=== PATIENT | male | born 1950 | race Caucasian/White ===

== ENCOUNTER → 2021-10-07 14:38 | Outpatient (BNVA) | payer MEDICARE, SELFPAY | PROVIDERS: PCP Family Medicine Adult Medicine; Referring Provider Family Medicine Adult Medicine; Visit Provider Surgery | DX: K40.20 Bilateral inguinal hernia, without obstruction or gangrene, not specified as recurrent (principal) | CPT/HCPCS: 99204 ==

== ENCOUNTER 2021-10-09 06:44 | Day surgery (SDC) | payer MEDICARE, SELFPAY ==
[2021-10-08 10:43] VITALS: BMI 22.1
--- NOTE | 2021-10-09 07:02 | P.HP_ITS ---
Same Day Surgery H&P Indication for Procedure/HPI DATE OF PROCEDURE: October 09, 2021 CHIEF COMPLAINT/INDICATIONFOR SURGICAL PROCEDURE: b/l inguinal hernia PREOP DIAGNOSIS: inguinal hernia PLANNED PROCEDURE: Operation Date: 10/09/21 08:15 Proposed Procedures p Lap poss open bilateral ingunial hernia repair 70966/K40.20(Bilateral) - Sanjay White MD Medications/Allergies* Home Medications Medication Instructions Recorded Confirmed Type amlodipine 5 mg tablet 5 mg PO DAILY 09/25/21 10/08/21 History candesartan 16 mg tablet 16 mg PO DAILY 09/25/21 10/08/21 History coenzyme Q35-[id number] E 100 mg-100 1 cap PO DAILY 09/25/21 10/08/21 History unit capsule magnesium oxide 400 mg (241.3 mg 400 mg PO DAILY 09/25/21 10/08/21 History magnesium) tablet simvastatin 20 mg tablet (Zocor) 20 mg PO BEDTIME tab 09/25/21 10/08/21 History vit C 250 mg-vit E 90 mg-zinc 40 1 tab PO DAILY cap 09/25/21 10/08/21 History mg-copper 1 [id number] capsule (PreserVision AREDS-2) Allergies/Adverse Reactions Allergy/AdvReac Type Severity Reaction Status Date / Time No Known Allergies Allergy Verified 10/08/21 10:39 Pertinent History/Comorbid Conditions* Medical History (Updated 10/07/21 @ 14:58 by Sanjay White MD) Hyperlipidemia Hypertension Surgical History (Updated 10/07/21 @ 14:58 by Sanjay White MD) History of cholecystectomy History of colonoscopy 25 years Family History (Updated 10/07/21 @ 14:48 by Jennifer Parmar MA) CAD (coronary artery disease) Cancer Social History Smoking and tobacco status: never smoked Alcohol intake: current Alcohol intake frequency: holidays/special occasions only Household members: spouse Marital status: Current occupational status: retired Pertinent Exam Findings alert, oriented x 3 and regular rate & rhythm Recommendations Surgery/Procedure today Coding Level of Care Code Acute Research Study Assistant for Niralig Arely
[2021-10-09 07:21] VITALS: BP 146/80; PULSE 69; RESP 18; TEMP 36.4; O2SAT 100
[2021-10-09] MEDS: sodium chloride 0.9% 1,000 ML 30 ML IV (07:32)
--- NOTE | 2021-10-09 08:10 | ANES.PREANE2 ---
Pre-Anesthetic Assessment Height/Weight: Height 1.7 m Weight 63.957 kg Temp Pulse Resp BP Pulse Ox 97.6 F 69 18 146/80 100 10/09/21 07:21 10/09/21 07:21 10/09/21 07:21 10/09/21 07:21 10/09/21 07:21 Preop Diagnosis: inguinal hernia Operation Date: 10/09/21 08:15 Proposed Procedures p Lap poss open bilateral ingunial hernia repair 96695/K40.20(Bilateral) - Sanjay White MD Familial anesthetic complications: PONV Was Beta Hailey taken within 24 hours: N/A Was Clonidine taken within 24 hours: N/A Last intake: Intake Last Liquid Date 10/08/21 Last Liquid Time 19:30 Last Solid Date 10/09/21 Last Solid Time 19:30 Social No alcohol and No tobacco Exam alert, oriented x 3, clear to auscultation bilaterally and regular rate & rhythm Airway Submandibular: within normal limits Cervical ROM: within normal limits Mallampati: Class II Dentition: full CV/HEM Hypertension Metabolic Hyperlipidemia Anesthetic Plan ASA status: 2 Anesthesia: General Medications/Allergies Home Medications Medication Instructions Recorded Confirmed Last Taken Type amlodipine 5 mg tablet 5 mg PO DAILY 09/25/21 10/09/21 10/09/21 History candesartan 16 mg tablet 16 mg PO DAILY 09/25/21 10/09/21 10/08/21 History coenzyme [id number] E 100 mg-100 1 cap PO DAILY 09/25/21 10/09/21 10/08/21 History unit capsule magnesium oxide 400 mg (241.3 mg 400 mg PO DAILY 09/25/21 10/09/21 10/08/21 History magnesium) tablet simvastatin 20 mg tablet (Zocor) 20 mg PO BEDTIME tab 09/25/21 10/09/21 10/08/21 History vit C 250 mg-vit E 90 mg-zinc 40 1 tab PO DAILY cap 09/25/21 10/08/21 Unknown History mg-copper 1 nu-yfkxzm-uplyuv capsule (PreserVision AREDS-2) hydrocodone 5 mg-acetaminophen 325 1 tab PO Q6H PRN #20 tab 10/09/21 Unknown Rx mg tablet Allergies Allergy/AdvReac Type Severity Reaction Status Date / Time No Known Allergies Allergy Verified 10/08/21 10:39 Current Medications Generic Name Dose Route Start Last Admin Trade Name Freq PRN Reason Stop Dose Admin Sodium Chloride 1,000 mls @ 30 mls/hr 10/09/21 07:15 10/09/21 07:32 Sodium Chloride 0.9% IV 10/10/21 07:14 30 mls/hr .Q24H STEVE Administration PFSH Anesthesia Medical History (Updated 10/08/21 @ 10:39 by Vonnie Sanchez) Hyperlipidemia Hypertension Surgical History (Updated 10/09/21 @ 08:03 by Sanjay White MD) History of cholecystectomy History of colonoscopy 25 years S/P bilateral inguinal hernia repair (10/09/21) Family History Other CAD (coronary artery disease) Cancer Social History Smoking and tobacco status: never smoked Alcohol intake: current Alcohol intake frequency: holidays/special occasions only Household members: spouse Marital status: Current occupational status: retired Data Anesthesia Cardiac Studies: No Data to Display
[2021-10-09] MEDS: diphenhydrAMINE 50 mg/mL SDV 1mL 12.5 MG IVP (08:12)
--- NOTE | 2021-10-09 09:22 | PM.OP ---
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 Laparoscopic total extraperitoneal repair of bilateral indirect inguinal hernia with Surgimax 3D mesh 15 x 10cm 2. Excision of lipoma of the right spermatic cord Pathology: none sent Surgeon: Sanjay White Anesthesia: General Condition: stable Disposition: PACU Procedure: The patient was taken to the operating room and intubated under general anesthesia. After IV antibiotic was administered, the abdomen was prepped and draped in a sterile manner. Using a 15 blade, a 1.0 cm transverse incision was made infraumbilically on the right side. Subcutaneous tissue was divided using electrocautery and the anterior rectus sheath divided using an 11 blade. The rectus muscle was retracted laterally and the extraperitoneal space identified. The retrorectus preperitoneal space was opened using a balloon dissector and 11 mm port was placed and 13 mm of pneumoperitoneum was created. A 10 mm 30? scope was introduced and 5 mm ports were placed in the midline, one 2-fingerbreadths above the pubic symphysis and the other midway between these two ports under direct visualization. The dissection was then carried laterally on the right where the iliopubic tract was identified. There was no femoral, obturator or direct hernia noted. The inferior epigastric artery was identified and dissection was carried posterior to it and laterally, the space was opened up to the level of the umbilicus superior to the anterior superior iliac spine. I then proceeded to dissect out the spermatic cord and the indirect hernial sac was reduced. There was a lipoma of the spermatic cord which was excised. The dissection was then carried laterally on the left where the iliopubic tract was identified. There was no femoral, obturator or direct hernia noted. The inferior epigastric artery was identified and dissection was carried posterior to it and laterally, the space was opened up to the level of the umbilicus superior to the anterior superior iliac spine. I then proceeded to dissect out the spermatic cord and the indirect hernial sac was reduced. 15 x 10cm Ultrapro mesh was rolled and introduced through the 10 mm port and then rolled laterally on the left side and apposed well against the abdominal wall to cover the myopectineal orifice completely and secured with Securestraps. 15 x 10cm Ultrapro mesh was rolled and introduced through the 10 mm port and then rolled laterally on the right side and apposed well against the abdominal wall to cover the myopectineal orifice completely and secured with Securestraps. 10 Cc of 0.5% Marcaine was infiltrated into the preperitoneal space. The extraperitoneal space was desufflated under direct visualization to ensure no slippage of hernial sac under the mesh. All ports were removed, the anterior rectus fascia at the infraumbilical port closed using figure of eight 0 Vicryl sutures, subcutaneous tissue approximated using 3-0 Vicryl sutures and skin at all three port sites were closed using running subcuticular 4-0 Monocryl sutures and Dermabond. 10 mL of 0.5% Marcaine was infiltrated at the port sites. The patient was stable throughout the procedure, extubated and transferred to recovery room.
[2021-10-09 09:30] VITALS: BP 127/75; PULSE 62; RESP 18; TEMP 36.1; O2SAT 99
[2021-10-09 09:35] VITALS: BP 114/70; PULSE 53; RESP 18; O2SAT 94
--- NOTE | 2021-10-09 09:38 | ANE.PACU2 ---
Inpatient post-anesthesia follow up: Airway intact: Yes Vital signs: Temperature 97.6 F Pulse Rate 69 Respiratory Rate 18 Blood Pressure 146/80 Pulse Oximetry 100 Oxygen Delivery Me thod Room Air Oxygen Flow Rate Fraction of Inspir ed Oxygen Hydration adequate: Yes Nausea and vomiting: No Pain level: 2 Mental status: Baseline
[2021-10-09 09:40] VITALS: BP 113/69; PULSE 54; O2SAT 95
[2021-10-09 10:09] VITALS: BP 107/57; PULSE 50; RESP 18; O2SAT 96
[2021-10-09 11:07] VITALS: BP 114/69; PULSE 73; RESP 18; O2SAT 97
[2021-10-09] MEDS: HYDROcodone-acetaminophen 5-325 mg Tablet 1 TAB PO (11:26)
== END 2021-10-09 11:50 | disposition home or self-care (01) ==
PROVIDERS: PCP Family Medicine Adult Medicine; Visit Provider Surgery
PROC: (CPT 49650; principal; 2021-10-09 08:10)
DX: K40.20 Bilateral inguinal hernia, without obstruction or gangrene, not specified as recurrent (principal); D17.6 Benign lipomatous neoplasm of spermatic cord; I10 Essential (primary) hypertension; E78.5 Hyperlipidemia, unspecified
CPT/HCPCS: 49650; C1781; J0690; J1100; J1170; J1200; J2370; J2405; J2704; J2710; J3010; J3490; J7030

== ENCOUNTER → 2021-10-21 10:36 | Outpatient (BNVA) | payer MEDICARE, SELFPAY | PROVIDERS: PCP Family Medicine Adult Medicine; Visit Provider Surgery | DX: Z98.890 Other specified postprocedural states (principal); Z87.19 Personal history of other diseases of the digestive system | CPT/HCPCS: 99024 ==

== ENCOUNTER → 2021-12-25 09:34 | Outpatient (BNVA) | payer MEDICARE, SELFPAY | PROVIDERS: PCP Family Medicine Adult Medicine; Visit Provider Family Medicine Adult Medicine | DX: I10 Essential (primary) hypertension (principal); E78.5 Hyperlipidemia, unspecified; Z13.6 Encounter for screening for cardiovascular disorders | CPT/HCPCS: 80053; 80061; 84443; 85025 ==

== ENCOUNTER → 2023-09-21 07:29 | Outpatient (BNVA) | payer MEDICARE, SELFPAY | PROVIDERS: PCP Family Medicine Adult Medicine; Visit Provider Family Medicine Adult Medicine | DX: I10 Essential (primary) hypertension (principal); E78.5 Hyperlipidemia, unspecified | CPT/HCPCS: 80053; 80061; 84443; 85025 ==

== ENCOUNTER → 2024-09-26 08:49 | Outpatient (BNVA) | payer MEDICARE, SELFPAY | PROVIDERS: PCP Family Medicine; Visit Provider Family Medicine | DX: Z00.00 Encounter for general adult medical examination without abnormal findings (principal); E78.2 Mixed hyperlipidemia; I10 Essential (primary) hypertension | CPT/HCPCS: 80053; 80061; 84443; 85025 ==